=== PATIENT | male | born 1960 | race Caucasian/White ===

== ENCOUNTER 2019-11-13 20:58 | Emergency (ER) | payer MEDICAID, OTHER ==
[~2019-11-13] VITALS: Ht 177.8 cm; Wt 77.1 kg
[~2019-11-13 20:58] MED LIST: BACL20TA; CARV25TA; DOXYCYCLINE; ENAL10TA86; OXYC-126; ROSU40TA; SIMV40TA96
[2019-11-13] MEDS ORDERED: ADENOSINE 6 MG/2 ML INJ IV ONE ×2 (21:45)
[2019-11-13] MEDS ORDERED: LORazepam 2MG/ML-1ML VIAL IV ONE (21:45)
[2019-11-13] MEDS ORDERED: DILTIAZEM HCL 25 MG/5 ML VIAL IV ONE ×2 (22:15)
[2019-11-13] MEDS ORDERED: DILTIAZEM 125mg/125ml BAG KIT 125 ML IV ONE (22:30)
[2019-11-13 22:36] LABS: Basophils # (auto) 0.1 uL; Basophils % (auto) 0.5 % (0.0-2.0); Eosinophils # (auto) 0.1 uL; Eosinophils % (auto) 0.8 % (0.0-7.0); Hematocrit 49.8 % (41.0-53.0); Hemoglobin 16.4 g/dL (13.5-17.5); Lymphocytes # (auto) 1.3 uL; Lymphocytes % (auto) 8.7 % (10.0-50.0); Mean Corpuscular Hgb Conc. 32.8 g/dL (32.0-36.0); Mean Corpuscular Volume 85.2 fL (80.0-100.0); Monocytes # (auto) 1.5 uL; Monocytes % (auto) 10.5 % (0.0-12.0); Neutrophils # (auto) 11.6 uL; Neutrophils % (auto) 79.5 % (37.0-80.0); Nucleated Red Blood Cells % 0.2 %; Platelet Count (auto) 328 10^3/uL (140-450); Red Blood Cells 5.85 10^6/uL (4.5-5.90); Red Cell Distribution Width 14.8 % (11.8-14.3); White Blood Cell 14.6 10^3/uL (4.4-10.8)
[2019-11-13 22:37] VITALS: BP 95/67
== END 2019-11-14 01:30 | disposition left against medical advice (07) ==
LOC: ER 21:06
DX: I47.1 Supraventricular tachycardia (principal); F41.9 Anxiety disorder, unspecified; Z91.19 Patient's noncompliance with other medical treatment and regimen; I25.10 Atherosclerotic heart disease of native coronary artery without angina pectoris; I10 Essential (primary) hypertension; I25.2 Old myocardial infarction
CPT/HCPCS: 36415; 71045; 83880; 85025; 93005; 96374; 96375; 99284; J0153; J2060

== ENCOUNTER → 2019-12-06 | Emergency (ER) | payer MEDICAID ==
[~2019-12-06] VITALS: Ht 175.3 cm; Wt 86.2 kg
[~2019-12-06] MED LIST changes: +DEXTROSE (50%) 50ML SYRG IV ONE; +EPINEPHrine HCL 1 MG/10 ML SYRG IV ONE; +SODIUM BICARBONATE 8.4% INJ 50ML SYRINGE IV ONE
== END | disposition expired ==
LOC: EDUNIT# 11:37 → EDBD 11:44 → ER 11:44
DX: I46.9 Cardiac arrest, cause unspecified (principal); I10 Essential (primary) hypertension; I25.2 Old myocardial infarction; I25.10 Atherosclerotic heart disease of native coronary artery without angina pectoris; Z79.899 Other long term (current) drug therapy
CPT/HCPCS: 31500; 92950; 99291; J0171; J7042